=== PATIENT | male | born 1965 | race Caucasian/White ===

== ENCOUNTER → 2018-08-02 09:30 | Outpatient (CLI) | payer SELFPAY ==
--- NOTE | 2018-08-02 09:33 | CT_ITS ---
CT heart w calcium score ITS.REASON: hld, htn . Nonsmoker.53 years ORDERING PHYSICIAN COMPARISON: None TECHNIQUE: All CT scans at this facility use one or more dose reduction techniques, viz.: automated exposure control, ma/kV adjustment per patient size (including targeted exams where dose is matched to indication, i.e. head) or iterative reconstruction technique. FINDINGS: Coronary calcium score is 1 indicating scant minimal plaque and implies low cardiovascular disease risk. (Score of 1 from scant calcification at the right coronary artery) Very limited images of chest for this calcium score show no prominent findings. 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 IMPRESSION......... Calcium Score of merely 1.. = Low Cardiovascular Risk
== END ==
PROVIDERS: PCP Nurse Practitioner Family; Visit Provider Urology
DX: E78.2 Mixed hyperlipidemia (principal); I10 Essential (primary) hypertension
CPT/HCPCS: 75571